=== PATIENT | male | born 1990 | race Caucasian/White ===

== ENCOUNTER 2017-12-08 16:58 | Emergency (ER) | payer BC ==
[2017-12-08 17:56] VITALS: BP 125/73
[2017-12-08] MEDS ORDERED: Tetan/Diph/Pertus SYR(Tdap)* 0.5 ML SYR(BOOSTRIX) use SYR IM ONE (18:17)
--- NOTE | 2017-12-08 18:37 | UC ---
Lower Extremity/Ankle HPI - HPI Summary HPI Summary: 27-year-old male presents with superficial puncture wound to his left anterior thigh. States he was working outdoors and dropped a piece of wood with a nail through it onto his leg. States he immediately washed out the wound and it did bleed some. Tetanus status is unknown. - History of Current Complaint Chief Complaint: UCLaceration Stated Complaint: NAIL PUNCTURE IN LEG Time Seen by Provider: 12/08/17 18:16 Hx Obtained From: Patient Onset/Duration: Sudden Onset Severity Currently: Mild Pain Intensity: 2 Aggravating Factor(s): Nothing Alleviating Factor(s): Nothing Able to Bear Weight: Yes - Allergies/Home Medications Allergies/Adverse Reactions: Allergies Allergy/AdvReac Type Severity Reaction Status Date / Time No Known Allergies Allergy Verified 12/08/17 17:56 Home Medications: Home Medications NK [No Home Medications Reported] 12/08/17 [History Confirmed 12/08/17] PMH/Surg Hx/FS Hx/Imm Hx Previously Healthy: Yes - denies significant past medical history - Surgical History Surgical History: None - Family History Family History: Noncontributory - Social History Occupation: Employed Full-time Lives: With Family Alcohol Use: Weekly Substance Use Type: None Smoking Status (MU): Never Smoked Tobacco Review of Systems Constitutional: Negative Skin: Other - See history of present illness Motor: Negative Neurovascular: Negative Musculoskeletal: Negative Is Patient Immunocompromised?: No All Other Systems Reviewed And Are Negative: Yes Physical Exam Triage Information Reviewed: Yes Appearance: Well-Appearing, No Pain Distress, Well-Nourished Vital Signs: Initial Vital Signs Temp 98.7 F 12/08/17 17:51 Pulse 66 12/08/17 17:51 Resp 18 12/08/17 17:51 BP 125/73 12/08/17 17:51 Pulse Ox 100 12/08/17 17:51 Respiratory: Positive: No respiratory distress Cardiovascular: Positive: Pulses Normal, Brisk Capillary Refill Musculoskeletal Exam: Normal Neurological: Positive: Alert Skin: Positive: Other - Single superficial puncture wound to mid anterior left thigh. No foreign body noted. Lower Extremity Course/Dx - Course Course Of Treatment: 27-year-old male with a superficial laceration to his left anterior thigh after dropping a piece of wood with a nail onto his leg. Wound was cleansed and dressed. Tetanus updated. Wound care and warning symptoms of infection were reviewed with the patient. Verbalizes understanding and agrees with plan of care. - Differential Dx/Diagnosis Provider Diagnoses: puncture wound left thigh Discharge - Sign-Out/Discharge Documenting (check all that apply): Patient Departure All imaging exams completed and their final reports reviewed: No Studies - Discharge Plan Condition: Stable Disposition: HOME Patient Education Materials: Puncture Wound (ED) Referrals: Pravin Silva MD [Primary Care Provider] - If Needed Additional Instructions: Your tetanus was updated today. Be sure to keep a record of this and notify your primary care provider so that your records can be updated. Gently clean the puncture wound to your left thigh daily with gentle soap and water. He may apply a small amount of antibiotic ointment and keep the wound covered with a Band-Aid. Monitor for signs of infection including fever greater than 100.5 F, redness that spreads, swelling around the wound, or pus draining from the wound. Be sure to seek immediate medical attention should any of these occur. - Billing Disposition and Condition Condition: STABLE Disposition: Home
== END 2017-12-08 18:45 | disposition home or self-care (01) ==
LOC: UCEAST 16:58
DX: S71.132A Puncture wound without foreign body, left thigh, initial encounter (principal); W45.0XXA Nail entering through skin, initial encounter; Y93.9 Activity, unspecified; Y92.9 Unspecified place or not applicable; Z23 Encounter for immunization
CPT/HCPCS: 90471; 90715; 99202; G0463

== ENCOUNTER 2018-07-07 09:43 | Emergency (ER) | payer BC ==
[2018-07-07 10:06] VITALS: BP 126/77
--- NOTE | 2018-07-07 10:43 | UC ---
Skin Complaint HPI - HPI Summary HPI Summary: took tick off R side scalp this am, not sure how long it was attached - History of Current Complaint Chief Complaint: UCSkin Time Seen by Provider: 07/07/18 10:23 Stated Complaint: TICK BITE Hx Obtained From: Patient Onset/Duration: Sudden Onset Onset Severity: Mild Current Severity: Mild Pain Intensity: 2 Related History: Insect Bite/Sting - Allergy/Home Medications Allergies/Adverse Reactions: Allergies Allergy/AdvReac Type Severity Reaction Status Date / Time No Known Allergies Allergy Verified 07/07/18 10:05 Home Medications: Home Medications Cetirizine HCl [Zyrtec] 10 mg PO DAILY 07/07/18 [History Confirmed 07/07/18] PMH/Surg Hx/FS Hx/Imm Hx Previously Healthy: Yes - Surgical History Surgical History: None - Family History Known Family History: Positive: None Family History: Noncontributory - Social History Occupation: Employed Full-time Lives: With Family Alcohol Use: Daily Substance Use Type: None Smoking Status (MU): Never Smoked Tobacco Review of Systems All Other Systems Reviewed And Are Negative: Yes Constitutional: Positive: Negative. Negative: Fever Respiratory: Positive: Negative Cardiovascular: Positive: Negative Is Patient Immunocompromised?: No Physical Exam Triage Information Reviewed: Yes Appearance: Well-Appearing, No Pain Distress, Well-Nourished Vital Signs: Initial Vital Signs Temp 97.6 F 07/07/18 10:01 Pulse 54 07/07/18 10:01 Resp 18 07/07/18 10:01 BP 126/77 07/07/18 10:01 Pulse Ox 100 07/07/18 10:01 Vital Signs Reviewed: Yes Respiratory Exam: Normal Cardiovascular Exam: Normal Skin Exam: Other - small erythemic tick bite R lateral scalp Course/Dx - Differential Diagnoses - Skin Complaint Differential Diagnoses: Cellulitis - Diagnoses Provider Diagnosis: Tick bite Discharge - Sign-Out/Discharge Documenting (check all that apply): Patient Departure All imaging exams completed and their final reports reviewed: No Studies - Discharge Plan Condition: Good Disposition: HOME Prescriptions: DOXYcycline CAP(*) [DOXYcycline 100MG CAP(*)] 100 mg PO DAILY #2 cap Patient Education Materials: Tick Bite (ED) Referrals: Pravin Silva MD [Primary Care Provider] - 2 Days (if no better) Additional Instructions: keep bite clean and dry take antibiotic today and report problems - Billing Disposition and Condition Condition: GOOD Disposition: Home
== END 2018-07-07 11:04 | disposition home or self-care (01) ==
LOC: UCEAST 09:43
DX: S00.06XA Insect bite (nonvenomous) of scalp, initial encounter (principal); W57.XXXA Bitten or stung by nonvenomous insect and other nonvenomous arthropods, initial encounter; Y92.9 Unspecified place or not applicable
CPT/HCPCS: 99212; G0463